=== PATIENT | male | born 1960 | race American Indian/Alaskan Native ===

== ENCOUNTER 2017-05-13 16:40 | Emergency (ER) | payer MEDICAID ==
[2017-05-13 16:58] VITALS: BP 165/83
[2017-05-13] MEDS ORDERED: diphenhydrAMINE 25 MG Cap PO ONE (17:26)
--- NOTE | 2017-05-13 17:32 | EDM.PDOC ---
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 Pt says this has been going on for a week (he holds up 7-8 fingers). When asked if it itches a lot he nods. He admits to scratching a lot. He denies any pain or other problems but did ask the nurse earlier about something to help him sleep (indicated by folding his hands beside his head). He does verbalize but very minimally. - Related Data Allergies Allergy/AdvReac Type Severity Reaction Status Date / Time ibuprofen [From Motrin] Allergy Cannot Verified 05/13/17 16:59 Remember Penicillins Allergy Cannot Verified 05/13/17 16:59 Remember quinine Allergy Cannot Verified 05/13/17 16:59 Remember Home Meds: Home Meds Multivitamin [Multivitamins] 1 each PO DAILY 12/28/13 [History] QUEtiapine Fumarate [Quetiapine Fumarate] 50 mg PO BEDTIME 12/28/13 [History] Simvastatin [Zocor] 20 mg PO BEDTIME 09/07/14 [History] Acetaminophen 975 mg PO Q4HR PRN 03/13/17 [History] Lisinopril 20 mg PO DAILY 03/13/17 [History] Mecobal/Levomefolat Ca/B6 Phos [Foltanx Tablet] 1 each PO DAILY 03/13/17 [ History] Metoprolol Tartrate [Lopressor] 50 mg PO BID 03/13/17 [History] Mirtazapine [Remeron] 30 mg PO BID 03/13/17 [History] [place]-3 Fatty Acids/Fish Oil [Fish Oil 1,000 mg Softgel] 1,000 mg PO TID [History] QUEtiapine Fumarate [Quetiapine Fumarate] 50 mg PO Q4HR PRN 03/13/17 [History] QUEtiapine [SEROquel] 25 mg PO DAILY 03/13/17 [History] Rivastigmine Tartrate [Rivastigmine] 3 mg PO BIDMEALS 03/13/17 [History] Sertraline [Zoloft] 75 mg PO DAILY 03/13/17 [History] levETIRAcetam [Levetiracetam] 750 mg PO BID 03/13/17 [History] metFORMIN [Glucophage XR] 500 mg PO DAILY 03/13/17 [History] metFORMIN [Glucophage] 850 mg PO WITHDINNER 03/13/17 [History] Past Medical History Cardiovascular History: Reports: High Cholesterol, Hypertension Genitourinary History: Reports: Renal Calculus Neurological History: Reports: CVA, Head Trauma, Seizure Psychiatric History: Reports: Addiction Endocrine/Metabolic History: Reports: Diabetes, Type II - Past Surgical History Other Neurological Surgeries/Procedures: metal plate in head Other Musculoskeletal Surgeries/Procedures:: metal plate in head Social & Family History - Family History Family Medical History: Noncontributory - Tobacco Use Smoking Status *Q: Former Smoker Years of Tobacco use: 36 Packs/Tins Daily: 2 Used Tobacco, but Quit: Yes Month Tobacco Last Used: 10 Second Hand Smoke Exposure: No - Caffeine Use Caffeine Use: Reports: Coffee, Soda, Tea - Alcohol Use Days Per Week of Alcohol Use: 7 Number of Drinks Per Day: 12 Total Drinks Per Week: 84 - Recreational Drug Use Recreational Drug Use: Yes Recreational Drug Type: Reports: Marijuana/Hashish, Methamphetamine Recreational Drug Use Frequency: Patient Refuses To Answer - Living Situation & Occupation Living situation: Reports: Single, with Family Occupation: Disabled ED ROS GENERAL - Review of Systems Review Of Systems: ROS reveals no pertinent complaints other than HPI. ED EXAM, SKIN/RASH Exam: See Below Exam Limited By: No Limitations General Appearance: Alert, WD/WN, No Apparent Distress Eye Exam: Bilateral Eye: EOMI, Normal Inspection, PERRL Ears: Normal External Exam, Hearing Grossly Normal Nose: Normal Inspection, No Blood Throat/Mouth: Normal Lips, No Airway Compromise Head: Atraumatic, Normocephalic Neck: Normal Inspection, Full Range of Motion Respiratory/Chest: No Respiratory Distress, Lungs Clear, Normal Breath Sounds Cardiovascular: Regular Rate, Rhythm, No Murmur GI/Abdominal: Normal Bowel Sounds, Soft, Non-Tender, No Organomegaly, No Distention Extremities: Normal Inspection, Normal Range of Motion, Non-Tender, No Pedal Edema, Other (All of his fingernails were long and in need of trimming which I feel would help minimize the ability to excoriate so badly.) Neurological: Alert, No Motor/Sensory Deficits Psychiatric: Normal Affect, Normal Mood Skin: Warm, Dry, Intact, Excoriations (numerous excoriations along bilat anterior thighs and less down the lower legs anteriorly. No significant rash aside from this. No sign of cellulitis. Nothing on torso, face, neck; minimal on arms.) Course - Vital Signs Last Recorded V/S: Last Vital Signs Temp 99.4 F 05/13/17 16:45 Pulse 69 05/13/17 16:45 Resp 20 05/13/17 16:45 BP 165/83 H 05/13/17 16:45 Pulse Ox 95 05/13/17 16:45 - Orders/Labs/Meds Orders: Active Orders 24 hr Category Date Time Status diphenhydrAMINE [Benadryl] Med 05/13/17 17:26 Once 25 mg PO ONETIME ONE - Re-Assessments/Exams Free Text/Narrative Re-Assessment/Exam: 05/13/17 18:05 Discussed findings and recommendations with patient and the [place] staffer that brought him in. Patient discharged in stable condition. Departure - Departure Time of Disposition: 17:27 Disposition: DC/Tfer to [facility] 03 Condition: Good Clinical Impression: Pruritus, Excoriated rash - Discharge Information Referrals: PCP,Unobtain [Primary Care Provider] - Additional Instructions: 1. Keep fingernails trimmed short to help prevent excoriations of skin while scratching. 2. Take Benadryl 25 mg by mouth every 8 hours as needed for itch. This can also be use every night for sleep aid as needed for insomnia. 3. Eucerin cream, Benadryl cream or Hydrocortisone cream applied daily as needed will also help the itch. 4. Follow up with PCP in a week if not improving. - My Orders Last 24 Hours: My Active Orders 05/13/17 17:26 diphenhydrAMINE [Benadryl] 25 mg PO ONETIME ONE - Assessment/Plan Last 24 Hours: My Active Orders 05/13/17 17:26 diphenhydrAMINE [Benadryl] 25 mg PO ONETIME ONE
== END 2017-05-13 17:40 ==
LOC: KA.ED 16:40
DX: L29.9 Pruritus, unspecified (principal); E78.00 Pure hypercholesterolemia, unspecified; I10 Essential (primary) hypertension; E11.9 Type 2 diabetes mellitus without complications; Z87.891 Personal history of nicotine dependence; Z79.84 Long term (current) use of oral hypoglycemic drugs; Z79.899 Other long term (current) drug therapy; Z88.6 Allergy status to analgesic agent; Z88.0 Allergy status to penicillin; Z88.8 Allergy status to other drugs, medicaments and biological substances
CPT/HCPCS: 99282; A9270